=== PATIENT | female | born 1960 | race Caucasian/White ===

== ENCOUNTER 2017-02-25 08:49 | Day surgery (SDC) | payer OTHER ==
[2017-02-25] MEDS ORDERED: PROPOFOL 120 ML (11:26)
== END 2017-02-25 12:06 | disposition home or self-care (01) ==
LOC: GIL 08:49
DX: K92.1 Melena (principal); K44.9 Diaphragmatic hernia without obstruction or gangrene; K21.9 Gastro-esophageal reflux disease without esophagitis; K29.70 Gastritis, unspecified, without bleeding; D12.6 Benign neoplasm of colon, unspecified; K64.8 Other hemorrhoids; E03.9 Hypothyroidism, unspecified; J44.9 Chronic obstructive pulmonary disease, unspecified; I10 Essential (primary) hypertension
CPT/HCPCS: 43239; 87081; 88305